=== PATIENT | male | born 1970 | race Two or more races ===

== ENCOUNTER 2017-06-15 07:43 | Day surgery (SDC) | payer OTHER ==
[2017-06-15] MEDS ORDERED: SOD CHLORIDE 0.9% 1,000 ML IV (08:30)
[2017-06-15] MEDS ORDERED: CEFAZOLIN 1 GM/50 ML (PMX) 50 ML IVPB (08:30)
[2017-06-15] MEDS ORDERED: DIPHENHYDRAMINE 50 MG INJ IV (09:00)
[2017-06-15] MEDS ORDERED: HYDROmorphONE (0.2 MG/ML) 10ML SYG IV ×3 (09:00)
[2017-06-15] MEDS ORDERED: MEPERIDINE 25 MG INJ IV (09:00)
[2017-06-15] MEDS ORDERED: PROCHLORPERAZINE 10 MG INJ IV (09:00)
[2017-06-15] MEDS ORDERED: FENTAnyl 50 MCG/ML VIAL IV ×3 (09:00)
[2017-06-15] MEDS ORDERED: OXYCODONE/ACETAMINOPHEN (5/325) TAB PO (09:00)
[2017-06-15] MEDS ORDERED: ONDANSETRON 4 MG INJ IV ×2 (09:00→12:00)
[2017-06-15 09:03] LABS: INR 1.07; PT RATIO 1.1
[2017-06-15 09:08] LABS: PARTIAL THROMBOPLASTIN TIME 36.4 Sec (25.0-35.0)
[2017-06-15] MEDS ORDERED: MIDAZOLAM 1 MG/ML 2 ML INJ (10:03)
[2017-06-15] MEDS ORDERED: LIDOCAINE 2% (SDV) 5 ML INJ (10:13)
[2017-06-15] MEDS ORDERED: CEFAZOLIN 1 GM INJ (10:13)
[2017-06-15] MEDS ORDERED: PROPOFOL 20 ML (10:13)
[2017-06-15] MEDS ORDERED: FENTAnyl 50 MCG/ML VIAL (10:19)
[2017-06-15] MEDS ORDERED: DEXAMETHASONE 4 MG/ML 1 ML INJ (10:19)
[2017-06-15] MEDS ORDERED: ONDANSETRON 4 MG INJ (10:19)
[2017-06-15] MEDS ORDERED: FAMOTIDINE 20 MG INJ (10:20)
[2017-06-15] MEDS: BUPIVACAINE 0.25%/EPI (SDV) 30 ML INJ (11:50)
[2017-06-15] MEDS ORDERED: KETOROLAC 30 MG INJ IV (12:00)
[2017-06-15] MEDS ORDERED: IBUPROFEN 600 MG TAB PO (12:00)
== END 2017-06-15 13:20 | disposition home or self-care (01) ==
LOC: SDS 07:43
DX: C81.72 Other Hodgkin lymphoma, intrathoracic lymph nodes (principal)
CPT/HCPCS: 38500; 85610; 85730; 87070; 87102; 87116; 88307; 88331; 88341; 88342

== ENCOUNTER 2018-06-16 10:41 | Day surgery (SDC) | payer OTHER ==
[2018-06-16] MEDS: SOD CHLORIDE 0.9% 1,000 ML IV (07:00)
[2018-06-16] MEDS: CEFAZOLIN 2 GM/50 ML (PMX) 50 ML IVPB (07:00)
[~2018-06-16 10:41] MED LIST: GLYCOPYRROLATE 0.4 MG INJ; PROPOFOL 200 MG INJ
[2018-06-16] MEDS ORDERED: POLYMYXIN/BACITRACIN 1L IRRIG (11:29)
[2018-06-16] MEDS ORDERED: PROPOFOL 20 ML (12:25)
[2018-06-16] MEDS ORDERED: LIDOCAINE 2% (SDV) 5 ML INJ (12:25)
[2018-06-16] MEDS ORDERED: ROCURONIUM 50 MG INJ (12:26)
[2018-06-16] MEDS ORDERED: CEFAZOLIN 1 GM INJ (12:53)
[2018-06-16] MEDS ORDERED: ONDANSETRON 4 MG INJ (12:54)
[2018-06-16] MEDS ORDERED: DEXAMETHASONE 4 MG/ML 5 ML INJ (12:54)
[2018-06-16] MEDS: BUPIVACAINE 0.25%/EPI (SDV) 30 ML INJ (13:09)
[2018-06-16] MEDS ORDERED: NEOSTIGMINE 3 MG/3 ML SYRINGE (14:51)
[2018-06-16] MEDS ORDERED: GLYCOPYRROLATE 0.4 MG INJ (14:51)
[2018-06-16] MEDS ORDERED: SUGAMMADEX SODIUM 200 MG/2 ML VIAL IV (14:55)
[2018-06-16] MEDS ORDERED: IBUPROFEN 600 MG TAB PO (15:00)
[2018-06-16] MEDS ORDERED: OXYCODONE/ACETAMINOPHEN (5/325) TAB PO ×4 (15:00→15:30)
[2018-06-16] MEDS: morphine 2 MG INJ IV (15:12)
[2018-06-16] MEDS: ONDANSETRON 4 MG INJ IV (15:12)
[2018-06-16] MEDS ORDERED: LABETALOL HCL 20MG INJ IV (15:30)
[2018-06-16] MEDS ORDERED: METOCLOPRAMIDE 10 MG INJ IV (15:30)
[2018-06-16] MEDS ORDERED: DIPHENHYDRAMINE 50 MG INJ IV (15:30)
[2018-06-16] MEDS ORDERED: ALBUTEROL 0.083% (NEB) 2.5 MG/3 ML AMP HHN (15:30)
[2018-06-16] MEDS ORDERED: MIDAZOLAM 1 MG/ML 2 ML INJ IV (15:30)
[2018-06-16] MEDS ORDERED: FENTAnyl 50 MCG/ML VIAL IV ×3 (15:30)
[2018-06-16] MEDS ORDERED: hydrALAzine 20 MG INJ IV (15:30)
[2018-06-16] MEDS ORDERED: ONDANSETRON 4 MG INJ IV (15:30)
[2018-06-16] MEDS ORDERED: EPHEDrine SULFATE 50 MG/5 ML SYG IV (15:30)
[2018-06-16] MEDS ORDERED: HYDROmorphONE 1 MG/5 ML IV SYRINGE IV ×2 (15:30)
[2018-06-16] MEDS ORDERED: MEPERIDINE 25 MG INJ IV (15:30)
[2018-06-16] MEDS ORDERED: KETOROLAC 30 MG INJ IV (15:30)
[2018-06-16] MEDS: HYDROmorphONE 1 MG/5 ML IV SYRINGE IV (15:49)
[2018-06-16] MEDS: KETOROLAC 30 MG INJ IV (15:50)
== END 2018-06-16 16:42 | disposition home or self-care (01) ==
LOC: SDS 10:41
DX: K43.2 Incisional hernia without obstruction or gangrene (principal); K42.9 Umbilical hernia without obstruction or gangrene
CPT/HCPCS: 49585; 88304